=== PATIENT | male | born 1950 | race Caucasian/White ===

== ENCOUNTER 2017-05-14 08:18 | Day surgery (SDC) | payer MEDICARE, OTHER ==
[2017-05-13 12:55] VITALS: BMI 25.5
[2017-05-14] MEDS ORDERED: Levofloxacin 500 mg/D5W 100 ml Premix Bag ONE (09:07)
[2017-05-14 09:47] LABS: PTT 34.5 SEC (22.9-36.1); Prothrombin Time 13.7 SEC (12.0-14.7)
[2017-05-14 09:53] LABS: Anion Gap 15 mmol/L (10-20); BUN (Urea Nitrogen) 21 mg/dL (8.4-25.7); Calc. Creatinine Clearance 56 mL/min (70-130); Calcium 9.3 mg/dL (7.8-10.44); Carbon Dioxide 25 mmol/L (23-31); Chloride 100 mmol/L (98-107); Estimated GFR-MDRD 48
[2017-05-14 10:20] LABS: Hematocrit 42.9 % (42.0-52.0); Mean Platelet Volume 6.8 fL (7.4-10.4); Red Blood Cell (RBC) Count 4.18 mill/uL (4.70-6.10); White Blood Cell (WBC) Count 9.1 thou/uL (4.8-10.8)
[2017-05-14 10:28] LABS: Band 10 % (5-11); Neutrophil 69 % (42-75); Reactive Lymphocytes 5 % (0-10)
[2017-05-14] MEDS ORDERED: Iothalamate Meglumine 60% 50 ML VIAL FS ONE (11:10)
[2017-05-14] MEDS ORDERED: Fentanyl 100 MCG/2 ML VIAL ONE (11:13)
[2017-05-14] MEDS ORDERED: Dexamethasone 20 MG/5 ML VIAL ONE (11:28)
[2017-05-14] MEDS ORDERED: PHENYLEPHRINE-NS 100 MCG/ML 10 ML SYRINGE ONE (11:28)
[2017-05-14] MEDS ORDERED: Glycopyrrolate 0.2 MG/ML 5 ML SYRINGE ONE (11:28)
[2017-05-14] MEDS ORDERED: Lidocaine 2% PF 10 ML AMP (For Epidural Use) ONE (11:28)
[2017-05-14] MEDS ORDERED: Ondansetron HCl/PF 4 MG/2 ML Vial ONE (11:28)
[2017-05-14] MEDS ORDERED: Propofol 200 MG/20 ML VIAL ONE (11:28)
--- NOTE | 2017-05-14 12:08 | RAD ---
KUB: Date: 05-14-17 Comparison: None. History: Pre-operative. FINDINGS: There is significant stool seen within the colon. There is gas within mildly prominent loops of smal l bowel within the mid left abdomen. There is extensive degenerative change involving the lumbar spi ne. Stool and bowel gas obscures bilateral renal shadows, especially on the right. A recent CT examination demonstrated a calcification suspicious for a stone within the distal left u reter overlying the sacrum. There is a faint calcific density overlying the left aspect of the sacru m measuring 4 mm, marked with an area on the PACS system. This may represent the previously noted di stal left ureteral stone. IMPRESSION: 4 mm calcification overlies the left aspect of the sacrum, which may represent a distal left uretera l stone. POS: EMILY
[2017-05-14] MEDS ORDERED: Phenazopyridine HCl 97.5 MG TABLET ONE ×2 (12:25)
--- NOTE | 2017-05-14 12:55 | OP ---
DATE OF PROCEDURE: 05/14/2017 PREOPERATIVE DIAGNOSIS: A 66-year-old male with history of non-progression of left distal ureteral calculi 4 mm with hydronephrosis. POSTOPERATIVE DIAGNOSIS: A 66-year-old male with history of non-progression of left distal ureteral calculi 4 mm with hydronephrosis. PROCEDURES: Cystoscopy, left retrograde, dilation of intramural ureter, distal ureter, rigid ureteroscopy, basket extraction of stone, a 6 x 28 double-J ureteral stent, meatal dilatation calibration with Melanie sounds. SURGEON: Casie Georges D.O. ANESTHESIA: General. COMPLICATIONS: None apparent. SPECIMEN: Stone for chemical analysis. INTRAOPERATIVE FINDINGS: 1. A mucosal flap in the bulbar urethra with no evidence of urethral stricture. 2. Coapting lateral lobes with no significant BPH component. 3. Bladder grossly unremarkable. 4. Obstructing left distal ureteral stone, with narrowing of the ureter at the level of the obstruction. INDICATIONS FOR THE PROCEDURE AND HISTORY: Mr. Foster is a 66-year-old male who presented to the emergency room on 05/07/2017 due to left lower quadrant abdominal discomfort. CT demonstrated a 4-mm distal ureteral stone at the level of mid SI joint with hydroureteronephrosis. The patient required minimal pain medication, of recent day or two has had intermittent left lower quadrant abdominal pain with non-progression of stone. He presents today for ureteroscopy, stone treatment. Risks and complications of the procedure was discussed with him in detail including, but not limited to, bleeding, pain, infection, injury to adjacent organs, urosepsis, stricture formation. Physical exam initially demonstrated KATE of 30 grams, his meatus is decreased in caliber , approximately 14 Greek. DESCRIPTION OF THE PROCEDURE: After an informed consent is signed, the patient is taken to the operating room, placed in a dorsal lithotomy position with the genital area prepped and draped in the usual surgical sterile fashion. A 21- Greek cystoscope was utilized for cystoscopy. There was some resistance passing the cystoscope at the meatus and as previously noted, there was decreased caliber in the meatus. Using Melanie sounds, we calibrated meatus to 16 Greek; subsequently, dilated to 26 Greek. We passed the scope subsequently without any difficulty. There was a bulbar mucosal flap. Etiology of this is unknown, this is incidental finding. There was no evidence of urethral stricture. There was bilateral hyperplasia with no significant obstructing component. Bladder was entered which demonstrated unremarkable bladder mucosa. The UOs were identified in normal anatomical location. An open -ended catheter was utilized to intubate the left ureter and we saw a subtle filling defect at the mid SI joint consistent with a stone. There was some tortuosity of the proximal ureteral stone. We were able to pass a 0.35 Sensor wire without difficulty to the left upper pole. Using a [employer] 4 cm 12 Greek balloon dilator, we dilated the intramural ureter uneventfully. We passed a rigid ureteroscope which advanced without difficulty. At the level of the stone at the mid SI joint level, we were unable to pass the scope proximal to this as there was some narrowing of the ureter at this level. It is likely the location where the stone was hung up. Therefore, we passed a second sensor wire and transitioned back to a cystoscope. As I was able to see the level that needed to be dilated, the balloon dilator was repassed and dilating the segment uneventfully. Subsequently we passed a rigid ureteroscope, which passed without difficulty. We were able to find the stone with ease just proximal to this. It appeared to have smooth margins, a nitinol zero tip basket was utilized to extract the stone as there was dilatation of the ureter, we are able to retrieve the stone atraumatically intact. This specimen was sent for chemical analysis. He tolerated the procedure well. As there is endoscopic clearance, I passed a 6 x 28 double-J ureteral stent over the wire and the wire subsequently removed. The stent was taped to dangler to his penis. He is discharged with [place] 5/325 #40, Flomax, AZO p.r.n., ciprofloxacin , Colace. He will see me in my office on 05/20/2017 at 8:15 a.m. for stent pull on dangler. [facility]
--- NOTE | 2017-05-14 14:46 | RAD ---
RETROGRADE PYELOGRAM: Four fluoroscopic views from OR presented. History: Intraoperative imaging during retrograde procedure. Left ureteral stone. FINDINGS: These images demonstrate a wire placed in the left ureter. There is partial opacification of the lef t collecting structures. POS: EMILY
[2017-05-19 17:12] LABS: CA Oxalate Monohydrate 98 % (.); Color Brown (.); Stone Size 4x3x3 mm (.); Stone Weight 38.7 mg (.)
--- NOTE | 2017-05-20 16:49 | EKG ---
Test Reason : PREOP Blood Pressure : / mmHG Vent. Rate : 069 BPM Atrial Rate : 069 BPM P-R Int : 194 ms QRS Dur : 090 ms QT Int : 394 ms P-R-T Axes : 066 -13 059 degrees QTc Int : 422 ms Normal sinus rhythm Normal ECG When compared with ECG of 12-SEP-2014 13:18, Questionable change in QRS axis Confirmed by Brayan GOMEZ ([id number]) on 05/20/2017 4:48:57 PM Referred By: ANTOINETTE Confirmed By:Brayan GOMEZ
== END 2017-05-14 14:48 ==
LOC: SDC 08:18
PROVIDERS: ATTEND Urology
PROC: 0TC78ZZ Extirpation of Matter from Left Ureter, Via Natural or Artificial Opening Endoscopic (ICD-10-PCS; principal; 2017-05-14)
PROC: 0T778DZ Dilation of Left Ureter with Intraluminal Device, Via Natural or Artificial Opening Endoscopic (ICD-10-PCS; 2017-05-14)
DX: N13.2 Hydronephrosis with renal and ureteral calculous obstruction (principal); N32.89 Other specified disorders of bladder; N36.8 Other specified disorders of urethra; I10 Essential (primary) hypertension; E78.5 Hyperlipidemia, unspecified; H40.053 Ocular hypertension, bilateral; Z79.82 Long term (current) use of aspirin; Z79.51 Long term (current) use of inhaled steroids; Z79.899 Other long term (current) drug therapy; Z88.8 Allergy status to other drugs, medicaments and biological substances; Z96.653 Presence of artificial knee joint, bilateral; Z87.891 Personal history of nicotine dependence; Z90.89 Acquired absence of other organs; Z98.890 Other specified postprocedural states; Z86.010 Personal history of colon polyps
CPT/HCPCS: 52356; 74000; 74420; 80048; 82365; 85025; 85610; 85730; 88300; 93005; C1758; C1769; 36415; 93010; J1100; J1956; J2001; J2405; J2704; J3010; Q9961

== ENCOUNTER 2017-10-09 14:45 | Outpatient (CLI) | payer MEDICARE, OTHER | END 2017-10-09 14:46 | disposition home or self-care (01) | LOC: BICULT 14:45 | PROVIDERS: ATTEND Urology | DX: Z12.5 Encounter for screening for malignant neoplasm of prostate (principal); N20.1 Calculus of ureter; N40.0 Benign prostatic hyperplasia without lower urinary tract symptoms | CPT/HCPCS: 74018; 76770 ==

== ENCOUNTER 2018-01-16 19:01 | Emergency (ER) | payer MEDICARE, OTHER ==
--- NOTE | 2018-01-16 21:47 | ULT ---
RIGHT LOWER EXTREMITY VENOUS DOPPLER ULTRASOUND EVALUATION: 01/16/18 HISTORY: Right lower extremity pain and swelling. Multiple longitudinal and transverse images of the right lower extremity venous system is obtained us ing multihertz linear array transducer. Real time, color flow, and spectral waveform doppler analysis demonstrates no evidence of acute or old clot seen in the right common femoral, superficial femoral, femoral profunda, popliteal, posterior tibial vein, post trifurcation veins, or greater saphenous ve in. IMPRESSION: No evidence of right lower extremity deep venous thrombosis. POS: EMILY
== END 2018-01-16 22:38 | disposition home or self-care (01) ==
LOC: ERS 19:01
DX: S80.811A Abrasion, right lower leg, initial encounter (principal); L25.5 Unspecified contact dermatitis due to plants, except food; I10 Essential (primary) hypertension; W60.XXXA Contact with nonvenomous plant thorns and spines and sharp leaves, initial encounter

== ENCOUNTER 2019-01-20 15:12 | Outpatient (CLI) | payer MEDICARE, OTHER ==
--- NOTE | 2019-01-20 17:00 | MRI ---
LEFT ANKLE MRI WITHOUT IV CONTRAST 01/20/19 HISTORY: Acute left ankle pain for four months. Multiplanar and multisequence MRI examination of the left ankle is performed. There is focal thickening of the Achilles tendon evidence for Achilles tendinopathy with unremarkable appearing Achilles insertion region. Subchondral cystic focus involving the medial talar dome measur ing approximately 0.8 x 1.4 cm in size, evidence for an osteochondral lesion. Evidence for peroneus l ongus tendinopathy with tendon sheath fluid within the common peroneus tendon sheath, evidence for as sociated tenosynovitis. The flexor and extensor tendons appear intact. Minimal thickening of the julisa ntar fascia, evidence for nonspecific fasciopathy without evidence for significant acute plantar fasc iitis. 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 Sinus tarsi and spring ligament region appears unremarkable. Medi al and lateral ankle collateral ligament complexes appear intact. IMPRESSION: Focal Achilles tendinopathy. Medial talar dome osteochondral lesion. Peroneus longus tendinopathy and common peroneus tendon sheath tenosynovitis. 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 Minimal thickening of the plantar fascia without associated findings of acute plantar fasciitis. POS: OFF
== END 2019-01-20 15:13 | disposition home or self-care (01) ==
LOC: SCSMRI 15:12
PROVIDERS: ATTEND Family Medicine
DX: M25.572 Pain in left ankle and joints of left foot (principal); M67.874 Other specified disorders of tendon, left ankle and foot

== ENCOUNTER 2020-03-13 11:40 | Observation (INO) | payer MEDICARE, OTHER ==
[~2020-03-13 11:40] MED LIST: Magnevist 469MG/ML 20 ML VIAL ONE
[2020-03-13 12:22] LABS: Hemoglobin 14.8 g/dL (14.0-18.0); Mean Corpuscular HGB CONC 33.4 g/dL (32.0-36.0); Mean Corpuscular Hemoglobin 33.6 pg (27.0-31.0); Mean Platelet Volume 7.2 fL (7.4-10.4); Platelet Count 265 thou/uL (130-400); RBC Distribution Width 11.6 % (11.5-14.5); White Blood Cell (WBC) Count 5.1 thou/uL (4.8-10.8)
--- NOTE | 2020-03-13 12:30 | CT ---
BRAIN CT WITHOUT IV CONTRAST: Date: 03/13/2020 HISTORY: Dysarthria, loss of speech, which resolved within 5 minutes. FINDINGS: No focal mass or midline shift. No intra or extra-axial hemorrhage. Sinuses and mastoids are clear of acute process. IMPRESSION: No significant acute intracranial process. No mass or bleed. POS: RRE
[2020-03-13 12:36] LABS: Anion Gap 11 mmol/L (10-20); BUN (Urea Nitrogen) 20 mg/dL (8.4-25.7); Calc. Creatinine Clearance 0 mL/min (70-130); Carbon Dioxide 25 mmol/L (23-31); Chloride 108 mmol/L (98-107); Estimated GFR-MDRD 88; Potassium 4.2 mmol/L (3.5-5.1); Sodium 140 mmol/L (136-145)
[2020-03-13 12:37] LABS: ALT (SGPT) 19 U/L (8-55); AST (SGOT) 15 U/L (5-34); Albumin 4.3 g/dL (3.4-4.8); Alkaline Phosphatase 75 U/L (40-110); Bilirubin, Total 0.4 mg/dL (0.2-1.2); CK (CPK) 83 U/L (30-200); Calcium 9.1 mg/dL (7.8-10.44); Globulin 2.9 g/dL (2.4-3.5); Glucose 102 mg/dL (83-110); Protein, Total 7.2 g/dL (5.8-8.1)
[2020-03-13 12:41] LABS: Band 4 % (5-11); Eosinophils 2 % (0-10); Lymphocytes 40 % (21-51); MDiff Complete? YES; Monocytes 11 % (0-10); Neutrophil 40 % (42-75); RBC Morphology Normal; Reactive Lymphocytes 3 % (0-10)
[2020-03-13] MEDS ORDERED: Aspirin 325 MG TAB ONE (12:45)
[2020-03-13] MEDS ORDERED: Acetaminophen 325 MG TAB PO PRN (13:26)
[2020-03-13] MEDS ORDERED: Bisacodyl 5 MG TAB PO PRN (13:26)
[2020-03-13] MEDS ORDERED: Senokot S 8.6-50 MG TAB PO PRN (13:26)
[2020-03-13] MEDS ORDERED: Fluticasone Propionate Nasal Spray 16 gm Bottle NASAL PRN (13:28)
[2020-03-13 14:27] LABS: Cardiac Risk 3.8 (Less than 4.5)
--- NOTE | 2020-03-13 15:46 | MRI ---
Magnetic resonance angiogram MRA head noncontrast: 03/13/2020 HISTORY: 69-year-old male with TIA TECHNIQUE: 3-D [id number] MRA acquired in multiple axial slabs through rosebud of [place]. Source images and 3 -D MIP reconstructions evaluated. FINDINGS: Bilateral carotid siphons, M1 and M2 segments of bilateral MCA's, A1 and A2 segments of bilateral MATTHEW 's, basilar, P1 and P2 segments of bilateral ciaio lumite injector, proximal aspects of bilateral superior cerebellar arteries, bilateral PICA's, and intracranial vertebral arteries, are visualized. There is signal dropout of the intracranial vertebral arteries, resulting in poor visualization. The rest of the vessels are well visualized. No evidence of short segment focal high-grade stenosis. No evidence of aneurysm greater than 3 mm. Bilateral posterior communicating arteries and anterior communicating artery, are patent. IMPRESSION: Negative
--- NOTE | 2020-03-13 16:15 | MRI ---
MRI BRAIN WITH AND WITHOUT IV CONTRAST: Date: 03/13/2020 HISTORY: TIA, loss of speech for 5 minutes. FINDINGS: Correlation made with CT scan from earlier today. There are a few tiny foci of restricted diffusion in the left posterior parietal lobe. No hemorrhage, midline shift, or abnormal extra-axial fluid collections are seen. The ventricular size is appropria te and the basilar cisterns are patent. No evidence of mass or abnormal postcontrast enhancement is s een. There is mucosal disease in the paranasal sinuses. There is a small old infarct in the right cer ebellar hemisphere. IMPRESSION: A few tiny recent lacunar infarctions in the left posterior parietal lobe. POS: SJDI
--- NOTE | 2020-03-13 17:07 | HP ---
CHIEF COMPLAINT: Expressive aphasia. HISTORY OF PRESENT ILLNESS: This is a 69-year-old male without significant past medical history except hypertension, presenting with expressive aphasia of a few minutes duration. Symptoms of right arm weakness started yesterday evening and that is resolved. This morning, he noticed around 10:30 a.m. that he is not able to speak. He knows what words to say, but he is not able to formulate the word as his tongue is tied up. The patient had no previous history of stroke or PA. The patient is not diabetic. He does not smoke. 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 Initial CT head is negative. EKG with sinus rhythm. NIH score was 0. REVIEW OF SYSTEMS: 13-point review of systems reviewed with the patient. Pertinent addressed in the history of present illness, rest negative. ALLERGIES: HE IS ALLERGIC TO PRAVASTATIN AND FLUVASTATIN. SOCIAL HISTORY: Does not smoke, but drink occasionally. FAMILY HISTORY: Significant for mother who had cardiovascular disease. PAST MEDICAL HISTORY: Hypertension. MEDICATIONS: 1. Norvasc 5 mg daily. 2. Aspirin 81 mg daily. 3. Dulcolax 10 mg as needed. 4. Tamsulosin/Flomax 0.4 mg daily. PAST SURGICAL HISTORY: Left total knee arthroplasty in 2015. PHYSICAL EXAMINATION: VITAL SIGNS: Temperature 97.5, pulse 60, blood pressure 150/105, and saturating 98% on room air. GENERAL: He is alert, oriented, not in any acute distress. HEENT: Pupils are equal, round, and reactive to light. Anicteric. Mucous membranes moist. CARDIOVASCULAR: Regular rate and rhythm without murmurs, rubs or gallops. LUNGS: Clear. ABDOMEN: Quite benign. NEUROLOGIC: Did not see any focal deficits. No dysarthria. No facial droop. He is moving his extremities spontaneously. No sensory impairment or weakness. No pitting edema in his extremities. PSYCHOLOGIC: Appropriate mood and affect. LABORATORY DATA: His CBC in the normal range except MCV of 101. His chemistry panel also in the normal range. His liver function tests in the normal range. His LDL is 119, TSH 2.8, A1c is pending. Troponin 0.01. EKG, sinus rhythm. CT head, negative for infiltrate. IMPRESSION AND PLAN: 1. This is a 69-year-old male with a history of hypertension and probable benign prostatic hyperplasia, presenting with transient ischemic attack. 2. Expressive aphasia, transient, and that is resolved completely. 3. Hypertension. -Aspirin 81 mg daily. The patient is brought in for ischemic stroke workup. We will get MRI and MRA as well as 2D echo. I counseled him on starting him on Lipitor. The patient does have a history of pravastatin and fluvastatin allergic reaction, but the patient is not aware of any statin allergy in the past. His LDL is 119. He would benefit with starting him on statin. We will litigation counsel him again tomorrow prior to discharge after the MRI reports reviewed. Meanwhile, the patient will be admitted for overnight monitoring and complete the ischemic stroke workup. Job ID: [id number] MTDD
[2020-03-13 18:32] VITALS: BMI 27.5
[2020-03-13] MEDS ORDERED: Latanoprost 0.005% Ophth Soln 2.5 ml Bottle EA EYE SCH (23:15)
[2020-03-13] MEDS: Brinzolamide 1% Ophth SUSP 10 ml Bottle EA EYE SCH (23:34)
[2020-03-14 05:26] LABS: Hemoglobin A1c 5.6 % (4.0-6.0)
[2020-03-14] MEDS ORDERED: Amlodipine 5 MG TAB PO SCH (09:00)
[2020-03-14] MEDS ORDERED: Aspirin 81 mg Enteric Coated Tablet PO SCH (09:00)
[2020-03-14] MEDS ORDERED: Tamsulosin HCl 0.4 MG CAP PO SCH (09:00)
[2020-03-14] MEDS: Brinzolamide 1% Ophth SUSP 10 ml Bottle EA EYE SCH (09:46)
[2020-03-14 12:19] VITALS: BP 143/80; TEMP 97.8
--- NOTE | 2020-03-14 14:32 | PDOC.EVN ---
Event Note - Event Note Event Note: pt has no severe allergic alpesh, incl myopathy just personal preference and mild insig.. discomfort - so he does not want to take statin. LLD 117, target < 100. pt wants life style change trial and pcp followup for repeat LDL so IT IS NOT PRESCRIBED
--- NOTE | 2020-03-14 16:15 | DIS ---
DATE OF ADMISSION: 03/13/2020 DATE OF DISCHARGE: 03/14/2020 DISCHARGE DIAGNOSES: 1. Transient ischemic attack. 2. Expressive aphasia that has resolved. 3. Hypertension. PERTINENT LABORATORY VALUES: A1c is 5.6. TSH is 2.8. LDL is 119. Creatinine is 0.86. MRA is negative for intracranial and extracranial stenosis. MRI showed tiny recent lacunar infarct in the left posterior parietal lobe. Echo showed EF of 60% and mild concentric left ventricular hypertrophy. PHYSICAL EXAMINATION: GENERAL: On the day of discharge, the patient is sitting comfortably and I have discussed the lab values as well as imaging studies. The patient's LDL is 119, requires intervention. He has pravastatin and fluvastatin listed as allergy. The patient states that he had some mild adverse reaction, but is not allergic. He can take the statin if he needed, but he feels that he does not want to take it and he wants to try lifestyle changes and he wants to follow up with primary care physician for that. I also made a statement about his blood pressure needs to be optimized with his medications and he does not want any interventions here. His current blood pressure readings are from 150 to 160 ranges. Target is below systolic 130. The patient rejected any suggestions and offers in this regard. He wants to follow up with his primary care physician as well as lifestyle changes. He is not comfortable taking statin as of now. CARDIOVASCULAR: Regular rate and rhythm without murmurs, rubs, or gallops. LUNGS: Clear to auscultation. ABDOMEN: Quite benign. EXTREMITIES: Without pitting edema. NEUROLOGIC: His symptoms are completely resolved. No dysarthria. No facial droopiness. No nystagmus. He is ambulating without any distress. HOSPITAL COURSE: A 69-year-old male with history of hypertension, presented with right arm weakness that was resolved followed by expressive aphasia of 5 minutes ' duration in the morning prior to coming to the ER. He was just not able to form the words, however, that was very transient without any memory impairment. Ischemic stroke workup is negative as outlined above. The patient is stable to be discharged home. DISCHARGE INSTRUCTIONS: Activity as tolerated. Healthy heart diet. Follow up with PCP in 1 week. TIME SPENT: Discharge time over 35 minutes. Job ID: [id number] [facility]arnie
[2020-03-14] MEDS ORDERED: Latanoprost 0.005% Ophth Soln 2.5 ml Bottle EA EYE SCH (21:00)
[2020-03-14] MEDS ORDERED: Prevnar 13-Val Conj/PF 0.5 ML SYRINGE IM ONE (21:00)
== END 2020-03-14 14:25 | disposition home or self-care (01) ==
LOC: ERS 11:40 → ERHOLD 12:52 → 2SE 17:38
PROVIDERS: ADMIT Internal Medicine; ATTEND Internal Medicine
DX: G45.9 Transient cerebral ischemic attack, unspecified (principal); I10 Essential (primary) hypertension; N40.0 Benign prostatic hyperplasia without lower urinary tract symptoms; Z79.82 Long term (current) use of aspirin; Z79.899 Other long term (current) drug therapy; Z88.8 Allergy status to other drugs, medicaments and biological substances
CPT/HCPCS: 36415; 70450; 70544; 70553; 80053; 80061; 82550; 83036; 84443; 84484; 85025; 93005; 93306; 94760; A9579; G0378

== ENCOUNTER 2022-12-05 14:52 | Outpatient (CLI) | payer MEDICARE, OTHER | END 2022-12-05 14:53 | disposition home or self-care (01) | LOC: SCSMRI 14:52 | PROVIDERS: ATTEND Family Medicine | DX: M54.42 Lumbago with sciatica, left side (principal); M51.34 Other intervertebral disc degeneration, thoracic region; M48.04 Spinal stenosis, thoracic region; M51.35 Other intervertebral disc degeneration, thoracolumbar region; M48.05 Spinal stenosis, thoracolumbar region; M48.061 Spinal stenosis, lumbar region without neurogenic claudication; M48.07 Spinal stenosis, lumbosacral region | CPT/HCPCS: 72148 ==